=== PATIENT | male | born 1975 | race Caucasian/White ===

== ENCOUNTER 2023-03-11 12:33 | Emergency (ER) | payer OTHER ==
[~2023-03-11] VITALS: Ht 170.2 cm; Wt 72.0 kg
[~2023-03-11 12:33] MED LIST: NAPR-232 PO; NO HOME MEDS; NORCO10T PO
[2023-03-11] MEDS ORDERED: TETanus/Pertussis (Acell)/Diphther VAC/PF (Tdap-Adult) 0.5ml syringe IMVAC ONE (12:50)
[2023-03-11] MEDS ORDERED: LIDOcaine 1% 30ml preserv. free vial IJ ONE (12:50)
[2023-03-11] MEDS ORDERED: ondansetron 4mg rapidly disintigrating tab PO ONE (13:00)
[2023-03-11] MEDS ORDERED: cephalexin 250mg capsule PO ONE (14:00)
[2023-03-11] MEDS ORDERED: HYDR-3973 PO (15:00)
[2023-03-11] MEDS ORDERED: CEPH-585 PO (15:00)
[2023-03-11 15:58] VITALS: BP 124/70; PULSE 75; RESP 18; TEMP 98.2; O2SAT 97
== END 2023-03-11 16:00 | disposition home or self-care (01) ==
LOC: ER 12:34
DX: S61.210A Laceration without foreign body of right index finger without damage to nail, initial encounter (principal); S61.212A Laceration without foreign body of right middle finger without damage to nail, initial encounter; X58.XXXA Exposure to other specified factors, initial encounter; Y93.89 Activity, other specified; Y92.89 Other specified places as the place of occurrence of the external cause; Y99.8 Other external cause status
CPT/HCPCS: 12002; 73140; 90471; 90715; 99284; A6258; A6449